=== PATIENT | male | born 1985 | race Caucasian/White ===

== ENCOUNTER 2019-09-01 05:09 | Emergency (ER) | payer SELFPAY ==
[2019-09-01] MEDS ORDERED: Ibuprofen 800 MG TAB ONE (05:41)
== END 2019-09-01 06:00 | disposition home or self-care (01) ==
LOC: ERS 05:09
DX: R07.89 Other chest pain (principal); F17.210 Nicotine dependence, cigarettes, uncomplicated
CPT/HCPCS: 93005